=== PATIENT | female | born 1955 | race Hispanic/Latino ===

== ENCOUNTER → 2016-04-27 | Outpatient (CLI) | payer OTHER ==
[~2016-04-27] MED LIST: CETI10TA PO; CLAR10CA3 PO; CYCL10TA PO; IMIT50TA PO; LORA1TAB12 PO; MULT1TAB9 PO; OMEP20CA3 PO; PROG1CRE TD; VAGI10TA VA
== END ==
LOC: M PAIN 09:20
PROVIDERS: ATTEND Nurse Practitioner Family
DX: Z09 Encounter for follow-up examination after completed treatment for conditions other than malignant neoplasm (principal); G89.29 Other chronic pain; M96.1 Postlaminectomy syndrome, not elsewhere classified; M79.1 Myalgia; M47.812 Spondylosis without myelopathy or radiculopathy, cervical region; Z88.8 Allergy status to other drugs, medicaments and biological substances; Z91.013 Allergy to seafood; Z79.899 Other long term (current) drug therapy

== ENCOUNTER 2016-06-26 07:18 | Emergency (ER) | payer OTHER ==
[2016-06-26] MEDS ORDERED: IBUP-1114 PO (07:46)
[2016-06-26] MEDS ORDERED: ZYRT10CA PO (07:46)
[2016-06-26] MEDS ORDERED: NIFE20CA PO (07:46)
[2016-06-26] MEDS ORDERED: MECLIZINE 25 MG TABLET PO ONE (08:45)
[2016-06-26] MEDS ORDERED: ONDANSETRON 4MG/2ML VIAL (J2405) IV ONE (08:45)
[2016-06-26 09:34] LABS: BASO % 0.5 % (0.0-1.0); EOS # 0.1 K/mm3 (0.0-0.50); EOS % 1.3 % (0.0-3.0); LARGE UNSTAINED CELL # 0.2 K/mm3 (0.0-0.4); LARGE UNSTAINED CELL % 1.9 % (0.0-4.0); LYMPH # 1.3 K/mm3 (1.5-4.5); LYMPH % 16.4 % (24.0-44.0); MEAN CORPUSCULAR HEMOGLOBIN 28.5 pg (27.0-33.0); MEAN CORPUSCULAR VOLUME 86.3 fl (80.0-96.0); MONO # 0.4 K/mm3 (0.0-0.8); MONO % 4.6 % (0.0-5.0); NEUTROPHILS % 75.3 % (36.0-66.0); PLATELET COUNT, AUTOMATED 181 k/mm3 (150-450); RED CELL DISTRIBUTION WIDTH 12.2 % (11.5-14.5); WHITE BLOOD COUNT 7.9 K/mm3 (4.0-10.0)
--- NOTE | 2016-06-26 10:00 | REP ---
CT BRAIN WITHOUT CONTRAST: 06/26/2016. Clinical history: [place] Palsy, otalgia. TMJ disorder. Findings: There were no prior pertinent studies. Axial soft-tissue and bone window settings reviewed for each slice level. There are no prior studies. Ventricles show symmetric size and contour without displacement from the midline. Third and fourth ventricles unremarkable. There are some calcifications in the basal ganglia, left slightly larger than right but normal findings. There is no vascular territory infarct, intracranial hemorrhage, mass or mass effect. The manning-white junction differentiation was well maintained. The cortical stripe is preserved. No significant atrophy. There are a few calcifications in the falx. There are some scattered dural calcifications in the vertex on both sides as well. These represent benign findings. No extra-axial fluid collection or mass. Brainstem, cerebellum and basal cisterns intact. Mastoids and visualized sinuses clear. The skull base and calvarium show no fracture or focal lesion. Impression: 1. There is no intracranial hemorrhage, acute infarct, mass or edema. Ventricular system normal and no atrophy. 2. Some calcifications noted in the basal ganglia bilaterally, left slightly greater than right but felt to be a common normal finding in this age group. No acute finding in this CT brain. 3. Maintenance Service Technician image shows a C4-C7 anterior fusion plate and screw fixation device in the cervical spine. Signed by Zacarias Molina MD 06/26/2016 05:05 P
[2016-06-26 10:07] LABS: ANION GAP 6 MEQ/L (8-16); BLOOD UREA NITROGEN 23 MG/DL (7-18); CARBON DIOXIDE LEVEL 30 MEQ/L (21-32); CHLORIDE LEVEL 107 MEQ/L (98-107); GLOMERULAR FILTRATION RATE > 60.0 (>51); GLUCOSE, FASTING 99 MG/DL (70-105); POTASSIUM SERUM 4.4 MEQ/L (3.5-5.1); SODIUM LEVEL 143 MEQ/L (136-145)
[2016-06-26] MEDS ORDERED: MECL-68 PO (11:35)
[2016-06-26 12:00] VITALS: BP 149/75
== END 2016-06-26 12:01 | disposition home or self-care (01) ==
LOC: M ED 08:11
DX: H83.09 Labyrinthitis, unspecified ear (principal); G89.29 Other chronic pain; M54.9 Dorsalgia, unspecified; G51.0 Bell's palsy; G43.909 Migraine, unspecified, not intractable, without status migrainosus; F41.9 Anxiety disorder, unspecified; Z79.899 Other long term (current) drug therapy; Z88.8 Allergy status to other drugs, medicaments and biological substances; Z91.041 Radiographic dye allergy status; Z91.013 Allergy to seafood; Z91.048 Other nonmedicinal substance allergy status
CPT/HCPCS: 70450; 80048; 85025; 96374; 99283; J2405

== ENCOUNTER → 2016-07-13 | Outpatient (CLI) | payer OTHER ==
[~2016-07-13] MED LIST changes: +IBUP-1114 PO; +MECL-68 PO; +NIFE20CA PO; +ZYRT10CA PO
--- NOTE | 2016-07-28 01:16 | ECWPNPC ---
PATIENT NAME: REJI CARBALLO : 1955 GENDER: FEMALE VISIT DATE: 07/13/2016 DISCHARGE DATE: 07/13/16 1451 VISIT LOCKED DATE TIME: PHYSICIAN: EZEQUIEL ASHBY RESOURCE: EZEQUIEL ASHBY REASON FOR APPOINTMENT 1. NECK HISTORY OF PRESENT ILLNESS HISTORY OF PRESENT ILLNESS: PAIN THE PATIENT DESCRIBES THE PAIN... FALL RISK SCREENING: SCREENING :NO FALLS IN THE PAST YEAR TODAY'S VISIT: NOTES: RATES PAIN 5/10. DESCRIBES PAIN ACHING, TENDER AND WITH A SENSE OF PRESSURE OVER RIGHT NECK AND SHOULDER.HAS NOTED AN INCREASE IN DISCOMFORT OF LAST FEW MONTHS. HAS BEEN DOING HER REMEDIES, INCLUDING MASSAGE, MEDS AND HEAT AND CREAMS. . CURRENT MEDICATIONS TAKING IMITREX 25 MG TABLET DIRECTED ORALLY TAKING CLARITIN 10 MG TABLET 1 TABLET ORALLY EVERY MORNING PRN TAKING ZYRTEC 10 MG 1 1 CAP(S) ORAL QHS PRN TAKING LORAZEPAM 1 MG TABLET 1 TABLET AT BEDTIME NEEDED ORALLY ONCE A DAY TAKING PATANOL 1 DROPS OPHTHALMIC DAILY PRN TAKING LOTEMAX 0.5 % SUSPENSION 1 DROP INTO AFFECTED EYE OPHTHALMIC BID TAKING FLEXERIL 10 MG TABLET 1 TAB ORALLY DAILY PRN SPASM TAKING LISINOPRIL 20 MG TABLET ORALLY NOT-TAKING VALACYCLOVIR HCL 1 GM TABLET 1 TABLET ORALLY TID NOT-TAKING VAGIFEM 10 MCG TABLET 1 TABLET VAGINAL TWO TIMES A WEEK DISCONTINUED PREDNISONE TAPER 10 MG TAB TAKE 6 TABS QDX 3 DAYS, THEN TAKE 4 TAB QD X 3 DAYS, THEN TAKE 2 TABS QD X 3 DAYS, THEN TAKE 1 TAB QD X 4 DAYS, THEN STOP ORALLY DAILY MEDICATION LIST REVIEWED AND RECONCILED WITH THE PATIENT ALLERGIES SKELAXIN: ITCHING AND TIGHTNESS IN CHEST: ALLERGY SHELLFISH: ITCHING AND HIVES: ALLERGY SOCIAL HISTORY GENERAL: PAIN CLINIC PFS, CLERGY, PUBLIC HEALTH REFERRALS CLERGY REFERRAL NEEDED?NO WAS THE PROVIDER NOTIFIED OF ANY PERTINENT INFO?NO PFS REFERRAL NEEDED?NO PUBLIC HEALTH REFERRAL NEEDED?NO PATIENT: ____. REVIEW OF SYSTEMS CONSTITUTIONAL: ANY CHANGE IN YOUR MEDICAL CONDITION? YES, HYPERTENTION 06/26/16 ENDED UP IN ER THEN TO PCP ON LISINOPRIL . CHILLS NO . FEVER NO . INFECTION: DO YOU HAVE NEW INFECTIONS? NO . DO YOU HAVE HISTORY OF MRSA? NO . MUSCULOSKELETAL: ANY NEW PATTERNS OF PAIN OR NUMBNESS? NO . GASTROENTEROLOGY: ANY NEW CHANGE IN BOWEL CONTROL? NO . GENITOURINARY: ANY NEW CHANGE IN BLADDER CONTROL? NO . IS THERE A CHANCE YOU COULD BE ? NO . HEMATOLOGY/LYMPH: DO YOU TAKE ANY BLOOD THINNERS? (FOR EXAMPLE- COUMADIN, PLAVIX, AGGRENOX, PLATEL, PRADAXA, OR XARELTO) NO . WHEN WAS YOUR LAST DOSE? DATE: TIME: . NEUROLOGY: HAVE YOU FALLEN IN THE PAST 6 MONTHS? NO . ANY NEW EXTREMITY NUMBNESS OR WEAKNESS? NO . CARDIOLOGY: DO YOU HAVE A PACEMAKER OR DEFIBRILLATOR? NO . CHEST PAIN ANTERIOR CHEST WALL. NO RADIATIION . RESPIRATORY: HAVE YOU BEEN SICK IN THE PAST WEEK? NO . FEVER NO . FLU LIKE SYMPTOMS? NO . COUGH NO . INTEGUMENTARY: DO YOU HAVE ANY RASHES OR OPEN SORES? NO . ALLERGIC/IMMUNO: ARE YOU ALLERGIC TO SHELLFISH OR IV DYE? YES, SHELLFISH . ANY NEW ALLERGIES? NO . PSYCHIATRIC: DO YOU HAVE THOUGHTS OF HURTING YOURSELF OR SOMEONE ELSE? NO . ARE YOU ABUSED, NEGLECTED, OR IN AN UNSAFE ENVIRONMENT? NO . ENDOCRINOLOGY: ARE YOU DIABETIC? NO . OTHER: DO YOU NEED ANY PRESCRIPTIONS? YES . IF YES, PLEASE LIST: FLEXERIL . ANY NEW PROBLEMS WITH YOUR MEDICATIONS? NO . WHEN DID YOU LAST EAT? ____ . WHEN DID YOU LAST DRINK? ____ . WHAT DID YOU LAST DRINK? ____ . NAME OF PERSON DRIVING YOU HOME? ____ . DO YOU HAVE ANY OTHER QUESTIONS OR CONCERNS NO . HEENT: GENERAL NEW ONSET SEVERE DIZZINESS - TO ER WITH THIS. DX WITH LABRINTHITIS. WAS ALSO STARTED ON LISINOPRIL . REVIEWED BY: PROVIDER: EZEQUIEL NOVAK . VITAL SIGNS WT 133 LBS, HT 65 IN, BMI 22.13 INDEX, BP 119/75 MM HG, HR 93 /MIN, RR 16 /MIN, TEMP 98.5 F, OXYGEN SAT % 100%, NA INITIALS SC 13:55, REVIEWED BY: EMILIE. EXAMINATION GENERAL EXAMINATION: LUNGS:CLEAR TO AUSCULTATION BILATERALLY. HEART:HEART RATE REGULAR. MUSCULOSKELETAL:MUSCLE STRENGTH TESTING 5/5 BILATERAL UPPER EXTREMITIES. , TRIGGER POINTS:, ELICITED WITH PALPATION OVER CERVICAL SPINOUS PROCESSES AND ACROSS THE TRAPEZIUS MUSCLES BILATERALLY. TIGHT FIBROUS BANDS PRESENT . MILD RESTRICTION OF ROM IS NOTED. . 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 CONTINUE MEDS AND CREAMS AAS NEEDED. ,TRIGGER POINT INJECTION: YOUR EXPERIENCE MATERIAL WAS PRINTED. PROCEDURE CODES FA211 ESTABILISHED PATIENT [facility] CHARGE DISPOSITION & COMMUNICATION FOLLOW UP AFTER INJECTION (REASON: CHECK AUTH FOR TPI/NECK) ELECTRONICALLY SIGNED BY RON BRYANT ON 07/25/2016 AT 06:38 PM EDT DISCLAIMER : THIS IS A VISIT SUMMARY EXTRACTED FROM THE [employer] CHART. IT IS NOT A COPY OF THE [employer] PROGRESS NOTE. ADAM
== END ==
LOC: M PAIN 14:00
PROVIDERS: ATTEND Nurse Practitioner Family
DX: Z09 Encounter for follow-up examination after completed treatment for conditions other than malignant neoplasm (principal); M79.1 Myalgia; M96.1 Postlaminectomy syndrome, not elsewhere classified; I10 Essential (primary) hypertension; M47.812 Spondylosis without myelopathy or radiculopathy, cervical region; Z79.899 Other long term (current) drug therapy; Z88.8 Allergy status to other drugs, medicaments and biological substances; Z91.013 Allergy to seafood

== ENCOUNTER → 2016-09-18 | Outpatient (CLI) | payer OTHER ==
[~2016-09-18] MED LIST changes: +BUPIVACAINE HCL 0.25% 10 ML VIAL As Ordered ONE; +BUPIVACAINE HCL 0.25% 30 ML VIAL As Ordered ONE; +TRIAMCINOLONE ACETONIDE SUSP 40 MG/ML VIAL (J3301) As Ordered ONE
--- NOTE | 2016-09-24 00:09 | ECWPNPC ---
PATIENT NAME: REJI CARBALLO : 1955 GENDER: FEMALE VISIT DATE: 09/18/2016 DISCHARGE DATE: 09/18/16 1629 VISIT LOCKED DATE TIME: PHYSICIAN: JUDITH PERRY RESOURCE: JUDITH PERRY REASON FOR APPOINTMENT 1. NECK AND SHOULDERS HISTORY OF PRESENT ILLNESS HISTORY OF PRESENT ILLNESS: PAIN THE PATIENT DESCRIBES THE PAIN... FALL RISK SCREENING: SCREENING :NO FALLS IN THE PAST YEAR CURRENT MEDICATIONS TAKING CLARITIN 10 MG TABLET 1 TABLET ORALLY EVERY MORNING PRN, NOTES: 09/18/16 0900 TAKING ZYRTEC 10 MG 1 1 CAP(S) ORAL QHS PRN, NOTES: 09/17/16 2200 TAKING LORAZEPAM 1 MG TABLET 1 TABLET AT BEDTIME NEEDED ORALLY ONCE A DAY, NOTES: NONE RECENTLY TAKING PATANOL 1 DROPS OPHTHALMIC DAILY PRN, NOTES: LAST WEEK TAKING FLEXERIL 10 MG TABLET 1 TAB ORALLY DAILY PRN SPASM, NOTES: 09/17/16 2200 TAKING LISINOPRIL 20 MG TABLET ORALLY ONCE A DAY, NOTES: 09/18/26 0900 NOT-TAKING IMITREX 25 MG TABLET DIRECTED ORALLY NOT-TAKING LOTEMAX 0.5 % SUSPENSION 1 DROP INTO AFFECTED EYE OPHTHALMIC BID NOT-TAKING CYCLOBENZAPRINE HCL 10 MG TABLET 1 TABLET ORALLY DAILY NOT-TAKING VALACYCLOVIR HCL 1 GM TABLET 1 TABLET ORALLY TID NOT-TAKING VAGIFEM 10 MCG TABLET 1 TABLET VAGINAL TWO TIMES A WEEK MEDICATION LIST REVIEWED AND RECONCILED WITH THE PATIENT PAST MEDICAL HISTORY HYPERTENSION ALLERGIES SKELAXIN: ITCHING AND TIGHTNESS IN CHEST: ALLERGY SHELLFISH: ITCHING AND HIVES: ALLERGY SURGICAL HISTORY BILATERAL BUNIONECTOMY CERVICAL FUSION D/C SOCIAL HISTORY GENERAL: TOBACCO USE ARE YOU A:NONSMOKER PAIN CLINIC PFS, CLERGY, PUBLIC HEALTH REFERRALS CLERGY REFERRAL NEEDED?NO WAS THE PROVIDER NOTIFIED OF ANY PERTINENT INFO?NO PFS REFERRAL NEEDED?NO PUBLIC HEALTH REFERRAL NEEDED?NO PATIENT: ____. HOSPITALIZATION/MAJOR DIAGNOSTIC PROCEDURE SURGERIES REVIEW OF SYSTEMS CONSTITUTIONAL: ANY CHANGE IN YOUR MEDICAL CONDITION? NO . CHILLS NO . FEVER NO . INFECTION: DO YOU HAVE NEW INFECTIONS? NO . DO YOU HAVE HISTORY OF MRSA? NO . MUSCULOSKELETAL: ANY NEW PATTERNS OF PAIN OR NUMBNESS? NO . GASTROENTEROLOGY: ANY NEW CHANGE IN BOWEL CONTROL? NO . GENITOURINARY: ANY NEW CHANGE IN BLADDER CONTROL? NO . IS THERE A CHANCE YOU COULD BE ? NO . HEMATOLOGY/LYMPH: DO YOU TAKE ANY BLOOD THINNERS? (FOR EXAMPLE- COUMADIN, PLAVIX, AGGRENOX, PLATEL, PRADAXA, OR XARELTO) NO . WHEN WAS YOUR LAST DOSE? DATE: TIME: . NEUROLOGY: HAVE YOU FALLEN IN THE PAST 6 MONTHS? NO . ANY NEW EXTREMITY NUMBNESS OR WEAKNESS? NO . CARDIOLOGY: DO YOU HAVE A PACEMAKER OR DEFIBRILLATOR? NO . RESPIRATORY: HAVE YOU BEEN SICK IN THE PAST WEEK? NO . FEVER NO . FLU LIKE SYMPTOMS? NO . COUGH NO . INTEGUMENTARY: DO YOU HAVE ANY RASHES OR OPEN SORES? NO . ALLERGIC/IMMUNO: ARE YOU ALLERGIC TO SHELLFISH OR IV DYE? YES . ANY NEW ALLERGIES? NO . PSYCHIATRIC: DO YOU HAVE THOUGHTS OF HURTING YOURSELF OR SOMEONE ELSE? NO . ARE YOU ABUSED, NEGLECTED, OR IN AN UNSAFE ENVIRONMENT? NO . ENDOCRINOLOGY: ARE YOU DIABETIC? NO . OTHER: DO YOU NEED ANY PRESCRIPTIONS? NO . IF YES, PLEASE LIST: ____ . ANY NEW PROBLEMS WITH YOUR MEDICATIONS? NO . WHEN DID YOU LAST EAT? 0800 . WHEN DID YOU LAST DRINK? 0900 . WHAT DID YOU LAST DRINK? APPLE JUICE . NAME OF PERSON DRIVING YOU HOME? MARK . DO YOU HAVE ANY OTHER QUESTIONS OR CONCERNS NO . REVIEWED BY: PROVIDER: . VITAL SIGNS WT 134.0 LBS, HT 65 IN, BMI 22.30 INDEX, BP 123/80 MM HG, HR 80 /MIN, RR 16 /MIN, TEMP 97.8 F, OXYGEN SAT % 100%, NA INITIALS TL 1454, REVIEWED BY: LS. ASSESSMENTS MYALGIA - M79.1 (PRIMARY) PROCEDURES PN TRIGGER POINT INJECTION WITH STEROIDS PRE PROCEDURE DIAGNOSIS 1. MYALGIA 2. PAIN AT RIGHT NECK AREA AND BILATERAL SHOULDER AREA POST PROCEDURE DIAGNOSIS 1. MYALGIA 2. PAIN AT RIGHT NECK AREA AND BILATERAL SHOULDER AREA PROCEDURE TRIGGER POINT INJECTION AT RIGHT NECK AREA AND BILATERAL SHOULDER AREA SURGEON DR. JUDITH PERRY SHEETER HELPER NONE ANESTHESIA LOCAL PRE PROCEDURE NOTE THE PATIENT HAS A HISTORY OF CHRONIC PAIN AT THE RIGHT NECK AREA AND RIGHT AND LEFT SHOULDER AREA. I EVALUATE THE PATIENT AND REVIEWED THE CHART. THERE IS EVIDENCE OF BANDS OF TISSUE WITH RESTRICTION OF MOVEMENT AND PRESENCE OF TRIGGER POINT AT THE AFFECTED AREA. I WENT OVER THE RISKS, ALTERNATIVES, AND BENEFITS ASSOCIATED WITH THIS PROCEDURE. THE PATIENT WOULD LIKE TO PROCEED AND GIVE CONSENT TO PERFORMED THE PROCEDURE. THE PATIENT DENIES UNEXPLAINABLE WEIGHT LOSS, FEVER, CHILLS, OR NEW CHANGES IN URINARY OR BOWEL CONTROL DESCRIPTION OF PROCEDURE THE PATIENT WAS BROUGHT TO THE PROCEDURE ROOM AND PLACED IN THE SITTING POSITION. THE AREA WAS CLEANED WITH ALCOHOL. THE PROCEDURE WAS DONE USING ASEPTIC STERILE TECHNIQUE. I CHECKED LATERALITY AND THE LEVEL WHERE THE PROCEDURE WAS GOING TO BE PERFORMED WITH THE PATIENT AND THE SUPPORTING STAFF AT THE MOMENT OF THE TIME OUT IN THE PROCEDURE ROOM. USING A 25-GAUGE NEEDLE, TRIGGER POINTS WERE INJECTED AT THE RIGHT NECK AREA AND RIGHT AND LEFT SHOULDER AREA WITH A TOTAL OF 40 ML OF BUPIVACAINE 0.25% AND KENALOG 40 MG. THERE WAS NO EVIDENCE OF BLOOD, PARESTHESIA OR CEREBROSPINAL FLUID DURING THE PROCEDURE. THE PATIENT WAS SENT TO THE RECOVERY ROOM. THE PATIENT WAS MOVING THE EXTREMITIES AND DOING WELL. THERE WAS NO COMPLICATION DURING THE PROCEDURE POST PROCEDURE NOTE THE PATIENT WILL BE SEEN IN A FOLLOW UP IN THE NEXT FEW WEEKS. INSTRUCTIONS WERE GIVEN, QUESTIONS WERE ANSWERED, AND THE PATIENT EXPRESSED UNDERSTANDING AND AGREES WITH THE PLAN. I, ALEJANDRO CARCAMO, DOCUMENTED THE ABOVE INFORMATION ACTING A SCRIBE FOR DR. PERRY. I HAVE REVIEWED THE ABOVE DOCUMENT, WRITTEN BY ALEJANDRO CARCAMO SCRIBE AND I VERIFY THAT IT IS ACCURATE PROCEDURE CODES 27535 INJECT TRIGGER POINTS 3/> DISPOSITION & COMMUNICATION FOLLOW UP 3 WEEKS ELECTRONICALLY SIGNED BY JUDITH PERRY MD ON 09/23/2016 AT 07:57 PM EDT DISCLAIMER : THIS IS A VISIT SUMMARY EXTRACTED FROM THE [employer] CHART. IT IS NOT A COPY OF THE [employer] PROGRESS NOTE. ADAM
== END ==
LOC: M PAIN 15:00
PROVIDERS: ATTEND Anesthesiology
DX: G89.29 Other chronic pain (principal); M79.1 Myalgia; I10 Essential (primary) hypertension; Z98.1 Arthrodesis status; Z91.013 Allergy to seafood; Z88.8 Allergy status to other drugs, medicaments and biological substances; Z79.899 Other long term (current) drug therapy
CPT/HCPCS: 20553; J3301

== ENCOUNTER → 2016-10-12 | Outpatient (CLI) | payer OTHER ==
[~2016-10-12] MED LIST changes: -BUPIVACAINE HCL 0.25% 10 ML VIAL As Ordered ONE; -BUPIVACAINE HCL 0.25% 30 ML VIAL As Ordered ONE; -TRIAMCINOLONE ACETONIDE SUSP 40 MG/ML VIAL (J3301) As Ordered ONE
--- NOTE | 2016-10-31 03:32 | ECWPNPC ---
PATIENT NAME: REJI CARBALLO : 1955 GENDER: FEMALE VISIT DATE: 10/12/2016 DISCHARGE DATE: 10/12/16 1419 VISIT LOCKED DATE TIME: PHYSICIAN: EZEQUIEL ASHBY RESOURCE: EZEQUIEL ASHBY REASON FOR APPOINTMENT 1. POST PROCEDURE,NECK/SHOULDER HISTORY OF PRESENT ILLNESS HISTORY OF PRESENT ILLNESS: PAIN THE PATIENT DESCRIBES THE PAIN... FALL RISK SCREENING: SCREENING :NO FALLS IN THE PAST YEAR TODAY'S VISIT: NOTES: RATES PAIN TODAY 4/10. IS S/P TPI TO RIGHT NECK AND SHOULDER AREA WITH STEROIDS ON 09/18/16 PRIOR TO INJECTION PAIN WAS 5/10 - THEN WENT TO 0-1/10 FOR A WEEK AND THEN SLOWLY INCREASES TO 3-4/10. HAS NOTED SIGNIG IMPROVEMNT IN MOVEMENT IN NECK AND GENERAL DECREASE .. CURRENT MEDICATIONS TAKING CLARITIN 10 MG TABLET 1 TABLET ORALLY EVERY MORNING PRN TAKING ZYRTEC 10 MG 1 1 CAP(S) ORAL QHS PRN TAKING LORAZEPAM 1 MG TABLET 1 TABLET AT BEDTIME NEEDED ORALLY ONCE A DAY TAKING FLEXERIL 10 MG TABLET 1 TAB ORALLY DAILY PRN SPASM TAKING LISINOPRIL 20 MG TABLET ORALLY ONCE A DAY TAKING XIIDRA 5 % SOLUTION 1 DROP INTO AFFECTED EYE OPHTHALMIC TWICE A DAY NOT-TAKING PATANOL 1 DROPS OPHTHALMIC DAILY PRN NOT-TAKING IMITREX 25 MG TABLET DIRECTED ORALLY NOT-TAKING LOTEMAX 0.5 % SUSPENSION 1 DROP INTO AFFECTED EYE OPHTHALMIC BID NOT-TAKING CYCLOBENZAPRINE HCL 10 MG TABLET 1 TABLET ORALLY DAILY NOT-TAKING VALACYCLOVIR HCL 1 GM TABLET 1 TABLET ORALLY TID NOT-TAKING VAGIFEM 10 MCG TABLET 1 TABLET VAGINAL TWO TIMES A WEEK MEDICATION LIST REVIEWED AND RECONCILED WITH THE PATIENT PAST MEDICAL HISTORY HYPERTENSION ALLERGIES SKELAXIN: ITCHING AND TIGHTNESS IN CHEST: ALLERGY SHELLFISH: ITCHING AND HIVES: ALLERGY SOCIAL HISTORY GENERAL: TOBACCO USE ARE YOU A:NONSMOKER ALEVISM [id number] PFS, CLERGY, PUBLIC HEALTH REFERRALS PFS REFERRAL NEEDED?NO CLERGY REFERRAL NEEDED?NO PUBLIC HEALTH REFERRAL NEEDED?NO HAS THE PATIENT BEEN EDUCATED REGARDING HIS/HER PLAN OF CARE?YES HAS THE PATIENT BEEN EDUCATED REGARDING PAIN, THE RISK FOR PAIN, THE IMPORTANCE OF EFFECTIVE PAIN MANAGEMENT, AND THE PAIN ASSESSMENT PROCESS?YES PATIENT: ____. REVIEW OF SYSTEMS REVIEWED BY: PROVIDER: EZEQUIEL NOVAK . CONSTITUTIONAL: ANY CHANGE IN YOUR MEDICAL CONDITION? NO . CHILLS NO . FEVER NO . INFECTION: DO YOU HAVE NEW INFECTIONS? NO . DO YOU HAVE HISTORY OF MRSA? NO . MUSCULOSKELETAL: ANY NEW PATTERNS OF PAIN OR NUMBNESS? NO . GASTROENTEROLOGY: ANY NEW CHANGE IN BOWEL CONTROL? NO . GENITOURINARY: ANY NEW CHANGE IN BLADDER CONTROL? NO . IS THERE A CHANCE YOU COULD BE ? NO . HEMATOLOGY/LYMPH: DO YOU TAKE ANY BLOOD THINNERS? (FOR EXAMPLE- COUMADIN, PLAVIX, AGGRENOX, PLATEL, PRADAXA, OR XARELTO) NO . WHEN WAS YOUR LAST DOSE? DATE: TIME: . NEUROLOGY: HAVE YOU FALLEN IN THE PAST 6 MONTHS? NO . ANY NEW EXTREMITY NUMBNESS OR WEAKNESS? NO . CARDIOLOGY: DO YOU HAVE A PACEMAKER OR DEFIBRILLATOR? NO . RESPIRATORY: HAVE YOU BEEN SICK IN THE PAST WEEK? NO . FEVER NO . FLU LIKE SYMPTOMS? NO . COUGH NO . INTEGUMENTARY: DO YOU HAVE ANY RASHES OR OPEN SORES? NO . ALLERGIC/IMMUNO: ARE YOU ALLERGIC TO SHELLFISH OR IV DYE? YES, SHELLFISH . ANY NEW ALLERGIES? NO . PSYCHIATRIC: DO YOU HAVE THOUGHTS OF HURTING YOURSELF OR SOMEONE ELSE? NO . ARE YOU ABUSED, NEGLECTED, OR IN AN UNSAFE ENVIRONMENT? NO . ENDOCRINOLOGY: ARE YOU DIABETIC? NO . OTHER: DO YOU NEED ANY PRESCRIPTIONS? NO . IF YES, PLEASE LIST: ____ . ANY NEW PROBLEMS WITH YOUR MEDICATIONS? NO . WHEN DID YOU LAST EAT? ____ . WHEN DID YOU LAST DRINK? ____ . WHAT DID YOU LAST DRINK? ____ . NAME OF PERSON DRIVING YOU HOME? ____ . DO YOU HAVE ANY OTHER QUESTIONS OR CONCERNS NO . VITAL SIGNS WT 133 LBS, HT 65 IN, BMI 22.13 INDEX, BP 136/84 MM HG, HR 75 /MIN, RR 16 /MIN, TEMP 98.0 F, OXYGEN SAT % 97%, NA INITIALS AW 1357, REVIEWED BY: CS. EXAMINATION GENERAL EXAMINATION: LUNGS:CLEAR TO AUSCULTATION BILATERALLY. HEART:HEART RATE REGULAR. MUSCULOSKELETAL:MUSCLE STRENGTH TESTING 5/5 BILATERAL UPPER EXTREMITIES. , TRIGGER POINTS:, ELICITED WITH PALPATION OVER CERVICAL SPINOUS PROCESSES AND ACROSS THE TRAPEZIUS MUSCLES BILATERALLY. TIGHT FIBROUS BANDS PRESENT . MILD RESTRICTION OF ROM IS NOTED. . 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 CONTINUE CURRENT MEDS NEEDED. PROCEDURE CODES FA211 ESTABILISHED PATIENT [facility] CHARGE DISPOSITION & COMMUNICATION FOLLOW UP MID (REASON: NECK/SHOULDER PAIN) ELECTRONICALLY SIGNED BY RON BRYANT ON 10/30/2016 AT 05:57 PM EDT DISCLAIMER : THIS IS A VISIT SUMMARY EXTRACTED FROM THE [employer] CHART. IT IS NOT A COPY OF THE [employer] PROGRESS NOTE. ADAM
== END ==
LOC: M PAIN 14:40
PROVIDERS: ATTEND Nurse Practitioner Family
DX: G89.29 Other chronic pain (principal); M79.1 Myalgia; M96.1 Postlaminectomy syndrome, not elsewhere classified; M47.812 Spondylosis without myelopathy or radiculopathy, cervical region; I10 Essential (primary) hypertension; Z79.899 Other long term (current) drug therapy; Z88.8 Allergy status to other drugs, medicaments and biological substances; Z91.013 Allergy to seafood

== ENCOUNTER → 2016-12-13 | Outpatient (CLI) | payer OTHER ==
--- NOTE | 2017-01-01 02:03 | ECWPNPC ---
PATIENT NAME: REJI CARBALLO : 1955 GENDER: FEMALE VISIT DATE: 12/13/2016 DISCHARGE DATE: 12/13/16 1458 VISIT LOCKED DATE TIME: PHYSICIAN: EZEQUIEL ASHBY RESOURCE: EZEQUIEL ASHBY REASON FOR APPOINTMENT 1. NECK HISTORY OF PRESENT ILLNESS HISTORY OF PRESENT ILLNESS: PAIN THE PATIENT DESCRIBES THE PAIN... FALL RISK SCREENING: SCREENING :NO FALLS IN THE PAST YEAR TODAY'S VISIT: NOTES: RATES PAIN TODAY 4-5/10. HAS BEEN NOTING INCREASED PAIN IN NECK AND UPPER SHOULDERS, RIGHT SIDE GREATER THAN LEFT. DESCRIBES PIN ACHING, TENDER AND SORE AND VERY TIGHT. IS HAVING INCREASED DIFFICULTY WITH NECK ROM.. CURRENT MEDICATIONS TAKING CLARITIN 10 MG TABLET 1 TABLET ORALLY EVERY MORNING PRN TAKING ZYRTEC 10 MG 1 1 CAP(S) ORAL QHS PRN TAKING LORAZEPAM 1 MG TABLET 1 TABLET AT BEDTIME NEEDED ORALLY ONCE A DAY TAKING FLEXERIL 10 MG TABLET 1 TAB ORALLY DAILY PRN SPASM TAKING LISINOPRIL 20 MG TABLET ORALLY ONCE A DAY TAKING XIIDRA 5 % SOLUTION 1 DROP INTO AFFECTED EYE OPHTHALMIC TWICE A DAY NOT-TAKING PATANOL 1 DROPS OPHTHALMIC DAILY PRN NOT-TAKING IMITREX 25 MG TABLET DIRECTED ORALLY NOT-TAKING LOTEMAX 0.5 % SUSPENSION 1 DROP INTO AFFECTED EYE OPHTHALMIC BID NOT-TAKING CYCLOBENZAPRINE HCL 10 MG TABLET 1 TABLET ORALLY DAILY NOT-TAKING VALACYCLOVIR HCL 1 GM TABLET 1 TABLET ORALLY TID NOT-TAKING VAGIFEM 10 MCG TABLET 1 TABLET VAGINAL TWO TIMES A WEEK MEDICATION LIST REVIEWED AND RECONCILED WITH THE PATIENT PAST MEDICAL HISTORY HYPERTENSION ALLERGIES SKELAXIN: ITCHING AND TIGHTNESS IN CHEST: ALLERGY SHELLFISH: ITCHING AND HIVES: ALLERGY SURGICAL HISTORY BILATERAL BUNIONECTOMY CERVICAL FUSION D/C HOSPITALIZATION/MAJOR DIAGNOSTIC PROCEDURE SURGERIES REVIEW OF SYSTEMS REVIEWED BY: PROVIDER: EZEQUIEL NOVAK . CONSTITUTIONAL: ANY CHANGE IN YOUR MEDICAL CONDITION? NO . CHILLS NO . FEVER NO . INFECTION: DO YOU HAVE NEW INFECTIONS? NO . DO YOU HAVE HISTORY OF MRSA? NO . MUSCULOSKELETAL: ANY NEW PATTERNS OF PAIN OR NUMBNESS? NO . GASTROENTEROLOGY: ANY NEW CHANGE IN BOWEL CONTROL? NO . GENITOURINARY: ANY NEW CHANGE IN BLADDER CONTROL? NO . IS THERE A CHANCE YOU COULD BE ? NO . HEMATOLOGY/LYMPH: DO YOU TAKE ANY BLOOD THINNERS? (FOR EXAMPLE- COUMADIN, PLAVIX, AGGRENOX, PLATEL, PRADAXA, OR XARELTO) NO . WHEN WAS YOUR LAST DOSE? DATE: TIME: . NEUROLOGY: HAVE YOU FALLEN IN THE PAST 6 MONTHS? NO . ANY NEW EXTREMITY NUMBNESS OR WEAKNESS? NO . CARDIOLOGY: DO YOU HAVE A PACEMAKER OR DEFIBRILLATOR? NO . RESPIRATORY: HAVE YOU BEEN SICK IN THE PAST WEEK? NO . FEVER NO . FLU LIKE SYMPTOMS? NO . COUGH NO . INTEGUMENTARY: DO YOU HAVE ANY RASHES OR OPEN SORES? NO . ALLERGIC/IMMUNO: ARE YOU ALLERGIC TO SHELLFISH OR IV DYE? YES, SHELLFISH . ANY NEW ALLERGIES? NO . PSYCHIATRIC: DO YOU HAVE THOUGHTS OF HURTING YOURSELF OR SOMEONE ELSE? NO . ARE YOU ABUSED, NEGLECTED, OR IN AN UNSAFE ENVIRONMENT? NO . ENDOCRINOLOGY: ARE YOU DIABETIC? NO . OTHER: DO YOU NEED ANY PRESCRIPTIONS? NO . IF YES, PLEASE LIST: ____ . ANY NEW PROBLEMS WITH YOUR MEDICATIONS? NO . WHEN DID YOU LAST EAT? ____ . WHEN DID YOU LAST DRINK? ____ . WHAT DID YOU LAST DRINK? ____ . NAME OF PERSON DRIVING YOU HOME? ____ . DO YOU HAVE ANY OTHER QUESTIONS OR CONCERNS NO . PSYCHOLOGY: HIGH STRESS LEVEL ASSOCIATED WITH:, AT WORK . SPECIFICALLY QUESTIONED AND DENIES SUICIDAL OR HOMICIDAL IDEATION . VITAL SIGNS WT 136 LBS, HT 65 IN, BMI 22.63 INDEX, BP 119/73 MM HG, HR 76 /MIN, RR 18 /MIN, TEMP 98.3 F, OXYGEN SAT % 96, REVIEWED BY: EM. EXAMINATION GENERAL EXAMINATION: LUNGS:CLEAR TO AUSCULTATION BILATERALLY, BREATHING IS SHALLOW. HEART:HEART RATE REGULAR. MUSCULOSKELETAL:MUSCLE STRENGTH TESTING 5/5 BILATERAL UPPER EXTREMITIES. , TRIGGER POINTS:, ELICITED WITH PALPATION OVER CERVICAL SPINOUS PROCESSES AND ACROSS THE TRAPEZIUS MUSCLES BILATERALLY. TIGHT FIBROUS BANDS PRESENT . RESTRICTION OF ROM IS NOTED WITH NECK FLEXION, EXTENSION AND ROTATION, AND WITH R>L SHOULDER SHRUG. 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 ICE/HEAT TO NECK AND SHOULDER. USE CURRENT MEDS AND DO EXERCISES GENTLY. PREVENTIVE MEDICINE GAVE INFO ON TRIGGER POINTS AND PRE PROCEDURE CARE DISCUSSED / PT EXPRESSED UNDERSTANDING OF ALL. PROCEDURE CODES FA211 ESTABILISHED PATIENT [facility] CHARGE DISPOSITION & COMMUNICATION FOLLOW UP AFTER INJECTION (REASON: NECK PAIN) ELECTRONICALLY SIGNED BY RON BRYANT ON 12/31/2016 AT 06:05 PM EDT DISCLAIMER : THIS IS A VISIT SUMMARY EXTRACTED FROM THE [employer] CHART. IT IS NOT A COPY OF THE [employer] PROGRESS NOTE. NIKOD
== END ==
LOC: M PAIN 14:00
PROVIDERS: ATTEND Nurse Practitioner Family
DX: G89.29 Other chronic pain (principal); M79.1 Myalgia; M96.1 Postlaminectomy syndrome, not elsewhere classified; M47.812 Spondylosis without myelopathy or radiculopathy, cervical region; Z91.013 Allergy to seafood; Z88.8 Allergy status to other drugs, medicaments and biological substances

== ENCOUNTER → 2017-01-10 | Outpatient (CLI) | payer OTHER ==
[~2017-01-10] MED LIST changes: +BUPIVACAINE HCL 0.25% 10 ML VIAL As Ordered ONE; +BUPIVACAINE HCL 0.25% 30 ML VIAL As Ordered ONE; +TRIAMCINOLONE ACETONIDE SUSP 40 MG/ML VIAL (J3301) As Ordered ONE
--- NOTE | 2017-01-16 00:38 | ECWPNPC ---
PATIENT NAME: REJI CARBALLO : 1955 GENDER: FEMALE VISIT DATE: 01/10/2017 DISCHARGE DATE: 01/10/17 1159 VISIT LOCKED DATE TIME: PHYSICIAN: JUDITH PERRY RESOURCE: JUDITH PERRY REASON FOR APPOINTMENT 1. TPI, NECK HISTORY OF PRESENT ILLNESS HISTORY OF PRESENT ILLNESS: PAIN THE PATIENT DESCRIBES THE PAIN... FALL RISK SCREENING: SCREENING :NO FALLS IN THE PAST YEAR CURRENT MEDICATIONS TAKING CLARITIN 10 MG TABLET 1 TABLET ORALLY EVERY MORNING PRN, NOTES: NOT LATELY TAKING ZYRTEC 10 MG 1 1 CAP(S) ORAL QHS PRN, NOTES: NOT LATELY TAKING LORAZEPAM 1 MG TABLET 1 TABLET AT BEDTIME NEEDED ORALLY ONCE A DAY, NOTES: A WEEK AGO TAKING FLEXERIL 10 MG TABLET 1 TAB ORALLY DAILY PRN SPASM, NOTES: A COUPLD DAYS AGO TAKING LISINOPRIL 20 MG TABLET ORALLY ONCE A DAY, NOTES: 01-10-17 0600 TAKING XIIDRA 5 % SOLUTION 1 DROP INTO AFFECTED EYE OPHTHALMIC TWICE A DAY, NOTES: 01-10-17 0700 TAKING PRILOSEC 20 MG CAPSULE DELAYED RELEASE 1 CAPSULE ORALLY ONCE A DAY NOT-TAKING PATANOL 1 DROPS OPHTHALMIC DAILY PRN NOT-TAKING IMITREX 25 MG TABLET DIRECTED ORALLY NOT-TAKING LOTEMAX 0.5 % SUSPENSION 1 DROP INTO AFFECTED EYE OPHTHALMIC BID NOT-TAKING CYCLOBENZAPRINE HCL 10 MG TABLET 1 TABLET ORALLY DAILY NOT-TAKING VALACYCLOVIR HCL 1 GM TABLET 1 TABLET ORALLY TID NOT-TAKING VAGIFEM 10 MCG TABLET 1 TABLET VAGINAL TWO TIMES A WEEK MEDICATION LIST REVIEWED AND RECONCILED WITH THE PATIENT PAST MEDICAL HISTORY HYPERTENSION ALLERGIES SKELAXIN: ITCHING AND TIGHTNESS IN CHEST: ALLERGY SHELLFISH: ITCHING AND HIVES: ALLERGY REVIEW OF SYSTEMS REVIEWED BY: PROVIDER: . CONSTITUTIONAL: ANY CHANGE IN YOUR MEDICAL CONDITION? NO . CHILLS NO . FEVER NO . INFECTION: DO YOU HAVE NEW INFECTIONS? NO . DO YOU HAVE HISTORY OF MRSA? NO . MUSCULOSKELETAL: ANY NEW PATTERNS OF PAIN OR NUMBNESS? NO . GASTROENTEROLOGY: ANY NEW CHANGE IN BOWEL CONTROL? NO . GENITOURINARY: ANY NEW CHANGE IN BLADDER CONTROL? NO . IS THERE A CHANCE YOU COULD BE ? NO . HEMATOLOGY/LYMPH: DO YOU TAKE ANY BLOOD THINNERS? (FOR EXAMPLE- COUMADIN, PLAVIX, AGGRENOX, PLATEL, PRADAXA, OR XARELTO) NO . WHEN WAS YOUR LAST DOSE? DATE: TIME: . NEUROLOGY: HAVE YOU FALLEN IN THE PAST 6 MONTHS? NO . ANY NEW EXTREMITY NUMBNESS OR WEAKNESS? NO . CARDIOLOGY: DO YOU HAVE A PACEMAKER OR DEFIBRILLATOR? NO . RESPIRATORY: HAVE YOU BEEN SICK IN THE PAST WEEK? NO . FEVER NO . FLU LIKE SYMPTOMS? NO . COUGH NO . INTEGUMENTARY: DO YOU HAVE ANY RASHES OR OPEN SORES? NO . ALLERGIC/IMMUNO: ARE YOU ALLERGIC TO SHELLFISH OR IV DYE? SHELL FISHYES . ANY NEW ALLERGIES? NO . PSYCHIATRIC: DO YOU HAVE THOUGHTS OF HURTING YOURSELF OR SOMEONE ELSE? NO . ARE YOU ABUSED, NEGLECTED, OR IN AN UNSAFE ENVIRONMENT? NO . ENDOCRINOLOGY: ARE YOU DIABETIC? NO . OTHER: DO YOU NEED ANY PRESCRIPTIONS? NO . IF YES, PLEASE LIST: ____ . ANY NEW PROBLEMS WITH YOUR MEDICATIONS? NO . WHEN DID YOU LAST EAT? ____LAST NIGHT 7 PM . WHEN DID YOU LAST DRINK? _WATER THIS MORNING . WHAT DID YOU LAST DRINK? ____ . NAME OF PERSON DRIVING YOU HOME? ____KATE . DO YOU HAVE ANY OTHER QUESTIONS OR CONCERNS NO . VITAL SIGNS WT 133 LBS, HT 65 IN, BMI 22.13 INDEX. ASSESSMENTS MYALGIA - M79.1 (PRIMARY) PROCEDURES PN TRIGGER POINT INJECTION WITH STEROIDS PRE PROCEDURE DIAGNOSIS 1. MYALGIA 2. PAIN AT RIGHT AND LEFT SHOULDER AREA AND RIGHT THORACIC AREA POST PROCEDURE DIAGNOSIS 1. MYALGIA 2. PAIN AT RIGHT AND LEFT SHOULDER AREA AND RIGHT THORACIC AREA PROCEDURE TRIGGER POINT INJECTION AT RIGHT AND LEFT SHOULDER AREA AND RIGHT THORACIC AREA SURGEON DR. JUDITH PERRY POLE SANDER OPERATOR NONE ANESTHESIA LOCAL PRE PROCEDURE NOTE THE PATIENT HAS A HISTORY OF CHRONIC PAIN AT THE RIGHT AND LEFT SHOULDER AND RIGHT THORACIC AREA. I EVALUATE THE PATIENT AND REVIEWED THE CHART. THERE IS EVIDENCE OF BANDS OF TISSUE WITH RESTRICTION OF MOVEMENT AND PRESENCE OF TRIGGER POINT AT THE AFFECTED AREA. I WENT OVER THE RISKS, ALTERNATIVES, AND BENEFITS ASSOCIATED WITH THIS PROCEDURE. THE PATIENT WOULD LIKE TO PROCEED AND GIVE CONSENT TO PERFORMED THE PROCEDURE. THE PATIENT DENIES UNEXPLAINABLE WEIGHT LOSS, FEVER, CHILLS, OR NEW CHANGES IN URINARY OR BOWEL CONTROL DESCRIPTION OF PROCEDURE THE PATIENT WAS BROUGHT TO THE PROCEDURE ROOM AND PLACED IN THE SITTING POSITION. THE AREA WAS CLEANED WITH ALCOHOL. THE PROCEDURE WAS DONE USING ASEPTIC STERILE TECHNIQUE. I CHECKED LATERALITY AND THE LEVEL WHERE THE PROCEDURE WAS GOING TO BE PERFORMED WITH THE PATIENT AND THE SUPPORTING STAFF AT THE MOMENT OF THE TIME OUT IN THE PROCEDURE ROOM. USING A 25-GAUGE NEEDLE, TRIGGER POINTS WERE INJECTED AT THE RIGHT AND LEFT SHOULDER AND RIGHT THORACIC AREA WITH A TOTAL OF 40 ML OF BUPIVACAINE 0.25% AND KENALOG 40 MG. THERE WAS NO EVIDENCE OF BLOOD, PARESTHESIA OR CEREBROSPINAL FLUID DURING THE PROCEDURE. THE PATIENT WAS SENT TO THE RECOVERY ROOM. THE PATIENT WAS MOVING THE EXTREMITIES AND DOING WELL. THERE WAS NO COMPLICATION DURING THE PROCEDURE POST PROCEDURE NOTE THE PATIENT WILL BE SEEN IN A FOLLOW UP IN THE NEXT FEW WEEKS. INSTRUCTIONS WERE GIVEN, QUESTIONS WERE ANSWERED, AND THE PATIENT EXPRESSED UNDERSTANDING AND AGREES WITH THE PLAN. I, GIRMA QUINTERO, DOCUMENTED THE ABOVE INFORMATION ACTING A SCRIBE FOR DR. PERRY. I HAVE REVIEWED THE ABOVE DOCUMENT, WRITTEN BY GIRMA JAVIER AND I VERIFY THAT IT IS ACCURATE. PROCEDURE CODES 01212 INJECT TRIGGER POINTS 3/> DISPOSITION & COMMUNICATION FOLLOW UP 3 WEEKS ELECTRONICALLY SIGNED BY JUDITH PERRY MD ON 01/14/2017 AT 12:44 PM EDT DISCLAIMER : THIS IS A VISIT SUMMARY EXTRACTED FROM THE [employer] CHART. IT IS NOT A COPY OF THE [employer] PROGRESS NOTE. ADAM
== END ==
LOC: M PAIN 10:45
PROVIDERS: ATTEND Anesthesiology
DX: G89.29 Other chronic pain (principal); M25.511 Pain in right shoulder; M25.512 Pain in left shoulder; M54.6 Pain in thoracic spine; M79.1 Myalgia; I10 Essential (primary) hypertension; Z91.013 Allergy to seafood; Z88.8 Allergy status to other drugs, medicaments and biological substances; Z79.899 Other long term (current) drug therapy
CPT/HCPCS: 20553; J3301

== ENCOUNTER → 2017-02-08 | Outpatient (CLI) | payer OTHER ==
[~2017-02-08] MED LIST changes: -BUPIVACAINE HCL 0.25% 10 ML VIAL As Ordered ONE; -BUPIVACAINE HCL 0.25% 30 ML VIAL As Ordered ONE; -TRIAMCINOLONE ACETONIDE SUSP 40 MG/ML VIAL (J3301) As Ordered ONE
--- NOTE | 2017-03-11 00:53 | ECWPNPC ---
PATIENT NAME: REJI CARBALLO : 1955 GENDER: FEMALE VISIT DATE: 02/08/2017 DISCHARGE DATE: 02/08/17 1510 VISIT LOCKED DATE TIME: PHYSICIAN: EZEQUIEL ASHBY RESOURCE: EZEQUIEL ASHBY REASON FOR APPOINTMENT 1. POST TPI HISTORY OF PRESENT ILLNESS HISTORY OF PRESENT ILLNESS: PAIN THE PATIENT DESCRIBES THE PAIN... FALL RISK SCREENING: SCREENING :NO FALLS IN THE PAST YEAR TODAY'S VISIT: NOTES: S/P TRIGGER POINTS TO NECK UPER SHOULDERS WITH STEROIDS COMPLETED ON 01/10/17. PAIN LEVEL PRIOR WAS 5/10 AND POST PROCEDURE PAIN LEVEL WAS 2/10 WITH SOME INTERMITTANT ELEVATION TO 3/10. BETTER ABLE TO MOVE HEAD AND SHRUG SHOULDERS. . CURRENT MEDICATIONS TAKING CLARITIN 10 MG TABLET 1 TABLET ORALLY EVERY MORNING PRN TAKING ZYRTEC 10 MG 1 1 CAP(S) ORAL QHS PRN TAKING LORAZEPAM 1 MG TABLET 1 TABLET AT BEDTIME NEEDED ORALLY ONCE A DAY TAKING FLEXERIL 10 MG TABLET 1 TAB ORALLY DAILY PRN SPASM TAKING LISINOPRIL 20 MG TABLET ORALLY ONCE A DAY TAKING XIIDRA 5 % SOLUTION 1 DROP INTO AFFECTED EYE OPHTHALMIC TWICE A DAY TAKING PRILOSEC 20 MG CAPSULE DELAYED RELEASE 1 CAPSULE ORALLY ONCE A DAY UNKNOWN PATANOL 1 DROPS OPHTHALMIC DAILY PRN UNKNOWN IMITREX 25 MG TABLET DIRECTED ORALLY UNKNOWN LOTEMAX 0.5 % SUSPENSION 1 DROP INTO AFFECTED EYE OPHTHALMIC BID UNKNOWN CYCLOBENZAPRINE HCL 10 MG TABLET 1 TABLET ORALLY DAILY UNKNOWN VALACYCLOVIR HCL 1 GM TABLET 1 TABLET ORALLY TID UNKNOWN VAGIFEM 10 MCG TABLET 1 TABLET VAGINAL TWO TIMES A WEEK MEDICATION LIST REVIEWED AND RECONCILED WITH THE PATIENT PAST MEDICAL HISTORY HYPERTENSION ALLERGIES SKELAXIN: ITCHING AND TIGHTNESS IN CHEST: ALLERGY SHELLFISH: ITCHING AND HIVES: ALLERGY REVIEW OF SYSTEMS REVIEWED BY: PROVIDER: EZEQUIEL ASHBY [employer] ARCHITECT . CONSTITUTIONAL: ANY CHANGE IN YOUR MEDICAL CONDITION? NO . CHILLS NO . FEVER NO . INFECTION: DO YOU HAVE NEW INFECTIONS? NO . DO YOU HAVE HISTORY OF MRSA? NO . MUSCULOSKELETAL: ANY NEW PATTERNS OF PAIN OR NUMBNESS? NO . GASTROENTEROLOGY: ANY NEW CHANGE IN BOWEL CONTROL? NO . GENITOURINARY: ANY NEW CHANGE IN BLADDER CONTROL? NO . IS THERE A CHANCE YOU COULD BE ? NO . HEMATOLOGY/LYMPH: DO YOU TAKE ANY BLOOD THINNERS? (FOR EXAMPLE- COUMADIN, PLAVIX, AGGRENOX, PLATEL, PRADAXA, OR XARELTO) NO . WHEN WAS YOUR LAST DOSE? DATE: TIME: . NEUROLOGY: HAVE YOU FALLEN IN THE PAST 6 MONTHS? NO . ANY NEW EXTREMITY NUMBNESS OR WEAKNESS? NO . CARDIOLOGY: DO YOU HAVE A PACEMAKER OR DEFIBRILLATOR? NO . RESPIRATORY: HAVE YOU BEEN SICK IN THE PAST WEEK? NO . FEVER NO . FLU LIKE SYMPTOMS? NO . COUGH NO . INTEGUMENTARY: DO YOU HAVE ANY RASHES OR OPEN SORES? NO . ALLERGIC/IMMUNO: ARE YOU ALLERGIC TO SHELLFISH OR IV DYE? YES, SHELLFISH . ANY NEW ALLERGIES? NO . PSYCHIATRIC: DO YOU HAVE THOUGHTS OF HURTING YOURSELF OR SOMEONE ELSE? NO . ARE YOU ABUSED, NEGLECTED, OR IN AN UNSAFE ENVIRONMENT? NO . ENDOCRINOLOGY: ARE YOU DIABETIC? NO . OTHER: DO YOU NEED ANY PRESCRIPTIONS? NO . IF YES, PLEASE LIST: ____ . ANY NEW PROBLEMS WITH YOUR MEDICATIONS? NO . WHEN DID YOU LAST EAT? ____ . WHEN DID YOU LAST DRINK? ____ . WHAT DID YOU LAST DRINK? ____ . NAME OF PERSON DRIVING YOU HOME? ____ . DO YOU HAVE ANY OTHER QUESTIONS OR CONCERNS YES, FORGOT HER PAIN DIARY BUT EXCEPT FOR A FEW DAYS, SHE HAS HAD GOOD RESULTS PAIN HAS BEEN ABOUT 2/10. . VITAL SIGNS WT 134.4 LBS, HT 65 IN, BMI 22.36 INDEX, BP 112/79 MM HG, HR 62 /MIN, RR 16 /MIN, TEMP 97.9 F, OXYGEN SAT % 100%, NA INITIALS SC 14:46, REVIEWED BY: EMILIE. EXAMINATION GENERAL EXAMINATION: LUNGS:CLEAR TO AUSCULTATION BILATERALLY. HEART:HEART RATE REGULAR. MUSCULOSKELETAL:MUSCLE STRENGTH TESTING 5/5 BILATERAL UPPER EXTREMITIES. , TRIGGER POINTS:, ELICITED WITH PALPATION OVER CERVICAL SPINOUS PROCESSES AND ACROSS THE TRAPEZIUS MUSCLES BILATERALLY. TIGHT FIBROUS BANDS PRESENT . MILD RESTRICTION OF ROM IS NOTED. . 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 CALL IF PAIN RETURNS. PROCEDURE CODES FA211 ESTABILISHED PATIENT [facility] CHARGE DISPOSITION & COMMUNICATION FOLLOW UP 2-3 MONTHS (REASON: NECK PAIN) ELECTRONICALLY SIGNED BY RON BRYANT ON 03/10/2017 AT 09:19 PM EST DISCLAIMER : THIS IS A VISIT SUMMARY EXTRACTED FROM THE [employer] CHART. IT IS NOT A COPY OF THE [employer] PROGRESS NOTE. ADAM
== END ==
LOC: M PAIN 14:15
PROVIDERS: ATTEND Nurse Practitioner Family
DX: M79.1 Myalgia (principal); M96.1 Postlaminectomy syndrome, not elsewhere classified; M47.812 Spondylosis without myelopathy or radiculopathy, cervical region; I10 Essential (primary) hypertension; Z79.899 Other long term (current) drug therapy; Z88.8 Allergy status to other drugs, medicaments and biological substances; Z91.013 Allergy to seafood

== ENCOUNTER → 2017-04-23 | Outpatient (CLI) | payer OTHER | LOC: M WHC 16:00 | DX: Z12.31 Encounter for screening mammogram for malignant neoplasm of breast (principal) ==

== ENCOUNTER → 2017-05-23 | Outpatient (CLI) | payer OTHER | LOC: M PAIN 14:45 | DX: M79.1 Myalgia (principal); M96.1 Postlaminectomy syndrome, not elsewhere classified; M47.812 Spondylosis without myelopathy or radiculopathy, cervical region; I10 Essential (primary) hypertension; Z79.899 Other long term (current) drug therapy; Z88.8 Allergy status to other drugs, medicaments and biological substances; Z91.013 Allergy to seafood | CPT/HCPCS: G0463 ==

== ENCOUNTER → 2017-07-02 | Outpatient (CLI) | payer OTHER ==
[~2017-07-02] MED LIST changes: +BUPIVACAINE HCL 0.25% 10 ML VIAL As Ordered; +BUPIVACAINE HCL 0.25% 30 ML VIAL As Ordered; -CETI10TA PO; -CLAR10CA3 PO; -CYCL10TA PO; -IBUP-1114 PO; -IMIT50TA PO; -LORA1TAB12 PO; -MECL-68 PO; -MULT1TAB9 PO; -NIFE20CA PO; -OMEP20CA3 PO; -PROG1CRE TD; +TRIAMCINOLONE ACETONIDE SUSP 40 MG/ML VIAL (J3301) As Ordered; -VAGI10TA VA; -ZYRT10CA PO
== END ==
LOC: M PAIN 14:30
DX: G89.29 Other chronic pain (principal); M79.1 Myalgia; I10 Essential (primary) hypertension; Z79.899 Other long term (current) drug therapy; Z88.8 Allergy status to other drugs, medicaments and biological substances; Z91.013 Allergy to seafood
CPT/HCPCS: J3301

== ENCOUNTER → 2017-09-04 | Outpatient (CLI) | payer OTHER | LOC: M PAIN 13:30 | DX: M79.1 Myalgia (principal); M96.1 Postlaminectomy syndrome, not elsewhere classified; M47.812 Spondylosis without myelopathy or radiculopathy, cervical region; I10 Essential (primary) hypertension; Z79.899 Other long term (current) drug therapy; Z88.8 Allergy status to other drugs, medicaments and biological substances; Z91.013 Allergy to seafood | CPT/HCPCS: G0463 ==

== ENCOUNTER → 2017-10-07 | Outpatient (CLI) | payer OTHER | LOC: M PAIN 11:45 | DX: G89.29 Other chronic pain (principal); M79.1 Myalgia; M25.511 Pain in right shoulder; M25.512 Pain in left shoulder; M54.6 Pain in thoracic spine; I10 Essential (primary) hypertension; Z79.899 Other long term (current) drug therapy; Z88.8 Allergy status to other drugs, medicaments and biological substances; Z91.013 Allergy to seafood | CPT/HCPCS: J3301 ==

== ENCOUNTER → 2017-10-28 | Outpatient (CLI) | payer OTHER | LOC: M PAIN 10:45 | DX: M79.1 Myalgia (principal); M96.1 Postlaminectomy syndrome, not elsewhere classified; M47.812 Spondylosis without myelopathy or radiculopathy, cervical region; I10 Essential (primary) hypertension; Z79.899 Other long term (current) drug therapy; Z88.8 Allergy status to other drugs, medicaments and biological substances; Z91.013 Allergy to seafood | CPT/HCPCS: G0463 ==

== ENCOUNTER → 2018-01-17 | Outpatient (CLI) | payer OTHER | LOC: M PAIN 09:15 | DX: M79.10 Myalgia, unspecified site (principal); M96.1 Postlaminectomy syndrome, not elsewhere classified; M47.812 Spondylosis without myelopathy or radiculopathy, cervical region; I10 Essential (primary) hypertension; Z98.1 Arthrodesis status; Z79.899 Other long term (current) drug therapy; Z88.8 Allergy status to other drugs, medicaments and biological substances; Z91.013 Allergy to seafood | CPT/HCPCS: G0463 ==

== ENCOUNTER → 2018-01-30 | Outpatient (CLI) | payer OTHER ==
[~2018-01-30] MED LIST changes: -BUPIVACAINE HCL 0.25% 10 ML VIAL As Ordered
== END ==
LOC: M PAIN 14:45
DX: M79.18 Myalgia, other site (principal); M25.512 Pain in left shoulder; M25.511 Pain in right shoulder; M54.6 Pain in thoracic spine; I10 Essential (primary) hypertension; Z79.899 Other long term (current) drug therapy; Z88.8 Allergy status to other drugs, medicaments and biological substances; Z91.013 Allergy to seafood
CPT/HCPCS: J3301

== ENCOUNTER → 2018-03-03 | Outpatient (CLI) | payer OTHER | LOC: M PAIN 11:15 | DX: M60.9 Myositis, unspecified (principal); M47.812 Spondylosis without myelopathy or radiculopathy, cervical region; I10 Essential (primary) hypertension; G43.909 Migraine, unspecified, not intractable, without status migrainosus; Z79.899 Other long term (current) drug therapy; Z88.8 Allergy status to other drugs, medicaments and biological substances; Z91.013 Allergy to seafood | CPT/HCPCS: G0463 ==

== ENCOUNTER → 2018-03-17 | Outpatient (CLI) | payer OTHER | LOC: M RAD 14:41 | DX: N64.4 Mastodynia (principal); Z13.820 Encounter for screening for osteoporosis | CPT/HCPCS: 77066 ==

== ENCOUNTER → 2018-03-26 | Outpatient (CLI) | payer OTHER | LOC: M WHC 12:16 | DX: Z13.820 Encounter for screening for osteoporosis (principal); N63.22 Unspecified lump in the left breast, upper inner quadrant | CPT/HCPCS: 77080 ==

== ENCOUNTER 2018-03-29 19:13 | Emergency (ER) | payer OTHER ==
[2018-03-29] MEDS: dexameTHASONE 20 MG/5 ML VIAL (J1100) IV ×2 (20:13)
[2018-03-29] MEDS: diphenhydrAMINE INJ 50MG/ML VIAL (J1200) IV ×2 (20:13)
[2018-03-29] MEDS: FAMOTIDINE IV BAG 20 MG in APPROPRIATE DILUENT 1 EA IV (20:13)
== END 2018-03-29 22:19 | disposition home or self-care (01) ==
LOC: M ED 19:13
DX: T61.781A Other shellfish poisoning, accidental (unintentional), initial encounter (principal); Y92.9 Unspecified place or not applicable; Y93.9 Activity, unspecified; G43.909 Migraine, unspecified, not intractable, without status migrainosus; I10 Essential (primary) hypertension; Z79.899 Other long term (current) drug therapy; Z91.041 Radiographic dye allergy status; Z91.89 Other specified personal risk factors, not elsewhere classified; Z88.8 Allergy status to other drugs, medicaments and biological substances
CPT/HCPCS: J1200

== ENCOUNTER → 2018-04-04 | Outpatient (CLI) | payer OTHER ==
[~2018-04-04] MED LIST changes: +BUPIVACAINE HCL 0.25% 10 ML VIAL As Ordered ONE; -BUPIVACAINE HCL 0.25% 30 ML VIAL As Ordered; +BUPIVACAINE HCL 0.25% 30 ML VIAL As Ordered ONE; +CETI10TA PO; +CLAR10CA3 PO; +CYCL10TA PO; +IBUP-1114 PO; +IMIT50TA PO; +LORA1TAB12 PO; +MECL-68 PO; +MULT1TAB9 PO; +NIFE20CA PO; +OMEP20CA3 PO; +PRED20TA PO; +PROG1CRE TD; -TRIAMCINOLONE ACETONIDE SUSP 40 MG/ML VIAL (J3301) As Ordered; +TRIAMCINOLONE ACETONIDE SUSP 40 MG/ML VIAL (J3301) As Ordered ONE; +VAGI10TA VA; +ZYRT10CA PO
--- NOTE | 2018-04-22 01:58 | ECWPNPC ---
PATIENT NAME: REJI CARBALLO : 1955 GENDER: FEMALE VISIT DATE: 04/04/2018 DISCHARGE DATE: 04/04/18 1115 VISIT LOCKED DATE TIME: PHYSICIAN: JUDITH PERRY MD RESOURCE: JUDITH PERRY MD REASON FOR APPOINTMENT 1. TPI HISTORY OF PRESENT ILLNESS HISTORY OF PRESENT ILLNESS: PAIN THE PATIENT DESCRIBES THE PAIN... FALL RISK SCREENING: SCREENING :NO FALLS IN THE PAST YEAR CURRENT MEDICATIONS TAKING CLARITIN 10 MG TABLET 1 TABLET ORALLY EVERY MORNING PRN, NOTES: 04/03/18 TAKING LISINOPRIL 20 MG TABLET ORALLY ONCE A DAY, NOTES: 04/04/18 AM TAKING PRILOSEC 20 MG CAPSULE DELAYED RELEASE 1 CAPSULE ORALLY ONCE A DAY, NOTES: 04/04/18 AM TAKING IMITREX 25 MG TABLET DIRECTED ORALLY , NOTES: 04/03/18 TAKING ZYRTEC 10 MG 1 1 CAP(S) ORAL QHS PRN, NOTES: 04/03/18 TAKING FLEXERIL 10 MG TABLET 1 TAB ORALLY DAILY PRN SPASM, NOTES: 04/03/18 NOT-TAKING LORAZEPAM 1 MG TABLET 1 TABLET AT BEDTIME NEEDED ORALLY ONCE A DAY NOT-TAKING CYCLOBENZAPRINE HCL 10 MG TABLET 1 TABLET ORALLY TWICE DAILY NEEDED, NOTES: 2-3 DAYS AGO NOT-TAKING OMEPRAZOLE 20 MG CAPSULE DELAYED RELEASE 1 CAPSULE ORALLY ONCE A DAY, NOTES: 07/02/17 0630 NOT-TAKING PATANOL 1 DROPS OPHTHALMIC DAILY PRN NOT-TAKING LOTEMAX 0.5 % SUSPENSION 1 DROP INTO AFFECTED EYE OPHTHALMIC BID NOT-TAKING VALACYCLOVIR HCL 1 GM TABLET 1 TABLET ORALLY TID NOT-TAKING VAGIFEM 10 MCG TABLET 1 TABLET VAGINAL TWO TIMES A WEEK MEDICATION LIST REVIEWED AND RECONCILED WITH THE PATIENT PAST MEDICAL HISTORY HYPERTENSION MIGRAINS ALLERGIES SKELAXIN: ITCHING AND TIGHTNESS IN CHEST: ALLERGY SHELLFISH: ITCHING AND HIVES: ALLERGY SURGICAL HISTORY BILATERAL BUNIONECTOMY CERVICAL FUSION 2000 D/C SOCIAL HISTORY GENERAL: TOBACCO USE ARE YOU A:NONSMOKER ALCOHOL SCREENING DID YOU HAVE A DRINK CONTAINING ALCOHOL IN THE PAST YEAR?NO POINTS0 INTERPRETATIONNEGATIVE RECREATIONAL DRUG USE DRUG USE?NO CAFFEINE CAFFEINE USE?YES HOW OFTEN AND HOW MUCH? 1 CUP COFFEE/DAY. BUDDHISM [id number] RELIGIOUS LANGUAGE LANGUAGES SPOKEN:KYRGYZ LEARNING BARRIERS / SPECIAL NEEDS BARRIERS TO LEARNING?NO HEARING IMPAIRED?NO VISION IMPAIRED?YES :CORRECTIVE LENSES COGNITIVELY IMPAIRED?NO READINESS TO LEARN?YES LEARNING PREFERENCES?NO LEARNING CAPABILITIES PRESENT?YES EMOTIONAL BARRIERS?NO SPECIAL DEVICES?NO RESEARCH AGRICULTURAL ENGINEER NEEDED?NO DOMESTIC VIOLENCE DO YOU FEEL SAFE IN YOUR ENVIRONMENT?YES PAIN CLINIC PFS, CLERGY, PUBLIC HEALTH REFERRALS PFS REFERRAL NEEDED?NO CLERGY REFERRAL NEEDED?NO PUBLIC HEALTH REFERRAL NEEDED?NO WAS THE PROVIDER NOTIFIED OF ANY PERTINENT INFO?YES HAS THE PATIENT BEEN EDUCATED REGARDING HIS/HER PLAN OF CARE?YES HAS THE PATIENT BEEN EDUCATED REGARDING PAIN, THE RISK FOR PAIN, THE IMPORTANCE OF EFFECTIVE PAIN MANAGEMENT, AND THE PAIN ASSESSMENT PROCESS?YES ADVANCE DIRECTIVE ADVANCE DIRECTIVE DISCUSSED WITH PATIENT:YES PT STATES HCP IS ON FILE WITH [facility] REVIEWED WITH PT 01/17/18 3482 LAS. HOSPITALIZATION/MAJOR DIAGNOSTIC PROCEDURE SURGERIES REVIEW OF SYSTEMS REVIEWED BY: PROVIDER: . CONSTITUTIONAL: ANY CHANGE IN YOUR MEDICAL CONDITION? NO . CHILLS NO . FEVER NO . INFECTION: DO YOU HAVE NEW INFECTIONS? NO . DO YOU HAVE HISTORY OF MRSA? NO . MUSCULOSKELETAL: ANY NEW PATTERNS OF PAIN OR NUMBNESS? NO . GASTROENTEROLOGY: ANY NEW CHANGE IN BOWEL CONTROL? NO . GENITOURINARY: ANY NEW CHANGE IN BLADDER CONTROL? NO . IS THERE A CHANCE YOU COULD BE ? NO . HEMATOLOGY/LYMPH: DO YOU TAKE ANY BLOOD THINNERS? (FOR EXAMPLE- COUMADIN, PLAVIX, AGGRENOX, PLATEL, PRADAXA, OR XARELTO) NO . WHEN WAS YOUR LAST DOSE? DATE: TIME: . NEUROLOGY: HAVE YOU FALLEN IN THE PAST 6 MONTHS? NO . ANY NEW EXTREMITY NUMBNESS OR WEAKNESS? NO . CARDIOLOGY: DO YOU HAVE A PACEMAKER OR DEFIBRILLATOR? NO . RESPIRATORY: HAVE YOU BEEN SICK IN THE PAST WEEK? NO . FEVER NO . FLU LIKE SYMPTOMS? NO . COUGH NO . INTEGUMENTARY: DO YOU HAVE ANY RASHES OR OPEN SORES? NO . ALLERGIC/IMMUNO: ARE YOU ALLERGIC TO SHELLFISH OR IV DYE? NO . ANY NEW ALLERGIES? NO . PSYCHIATRIC: DO YOU HAVE THOUGHTS OF HURTING YOURSELF OR SOMEONE ELSE? NO . ARE YOU ABUSED, NEGLECTED, OR IN AN UNSAFE ENVIRONMENT? NO . ENDOCRINOLOGY: ARE YOU DIABETIC? NO . OTHER: DO YOU NEED ANY PRESCRIPTIONS? NO . IF YES, PLEASE LIST: ____ . ANY NEW PROBLEMS WITH YOUR MEDICATIONS? NO . WHEN DID YOU LAST EAT? 04/03/18 1900 . WHEN DID YOU LAST DRINK? 04/04/18 AM . WHAT DID YOU LAST DRINK? WATER . NAME OF PERSON DRIVING YOU HOME? ROMINA . DO YOU HAVE ANY OTHER QUESTIONS OR CONCERNS NO . VITAL SIGNS WT 130 LBS, HT 65 IN, BMI 21.63 INDEX, BP 108/81 MM HG, HR 81 /MIN, RR 16 /MIN, TEMP 98.9 F, OXYGEN SAT % 100, REVIEWED BY: EM. ASSESSMENTS MYALGIA, OTHER SITE - M79.18 (PRIMARY) TREATMENT OTHERS REFILL FLEXERIL TABLET, 10 MG, 1 TAB, ORALLY, DAILY PRN SPASM, 30 DAY(S), 30, REFILLS 1, NOTES: 04/03/18 PROCEDURES PN TRIGGER POINT INJECTION WITH STEROIDS PRE PROCEDURE DIAGNOSIS 1. MYALGIA 2. PAIN AT BILATERAL SHOULDER AREA AND BILATERAL THORACIC AREA POST PROCEDURE DIAGNOSIS 1. MYALGIA 2. PAIN AT BILATERAL SHOULDER AREA AND BILATERAL THORACIC AREA PROCEDURE TRIGGER POINT INJECTION AT BILATERAL SHOULDER AREA AND BILATERAL THORACIC AREA SURGEON DR. JUDITH PERRY GAS GENERATOR OPERATOR NONE ANESTHESIA LOCAL PRE PROCEDURE NOTE THE PATIENT HAS A HISTORY OF CHRONIC PAIN AT THE RIGHT AND LEFT SHOULDER AREA AND RIGHT AND LEFT THORACIC AREA. I EVALUATE THE PATIENT AND REVIEWED THE CHART. THERE IS EVIDENCE OF BANDS OF TISSUE WITH RESTRICTION OF MOVEMENT AND PRESENCE OF TRIGGER POINT AT THE AFFECTED AREA. I WENT OVER THE RISKS, ALTERNATIVES, AND BENEFITS ASSOCIATED WITH THIS PROCEDURE. THE PATIENT WOULD LIKE TO PROCEED AND GIVE CONSENT TO PERFORMED THE PROCEDURE. THE PATIENT DENIES UNEXPLAINABLE WEIGHT LOSS, FEVER, CHILLS, OR NEW CHANGES IN URINARY OR BOWEL CONTROL DESCRIPTION OF PROCEDURE THE PATIENT WAS BROUGHT TO THE PROCEDURE ROOM AND PLACED IN THE SITTING POSITION. THE AREA WAS CLEANED WITH ALCOHOL. THE PROCEDURE WAS DONE USING ASEPTIC STERILE TECHNIQUE. I CHECKED LATERALITY AND THE LEVEL WHERE THE PROCEDURE WAS GOING TO BE PERFORMED WITH THE PATIENT AND THE SUPPORTING STAFF AT THE MOMENT OF THE TIME OUT IN THE PROCEDURE ROOM. USING A 25-GAUGE NEEDLE, TRIGGER POINTS WERE INJECTED AT THE RIGHT AND LEFT SHOULDER AREA AND RIGHT AND LEFT THORACIC AREA WITH A TOTAL OF 40 ML OF BUPIVACAINE 0.25% AND KENALOG 40 MG. THERE WAS NO EVIDENCE OF BLOOD, PARESTHESIA OR CEREBROSPINAL FLUID DURING THE PROCEDURE. THE PATIENT WAS SENT TO THE RECOVERY ROOM. THE PATIENT WAS MOVING THE EXTREMITIES AND DOING WELL. THERE WAS NO COMPLICATION DURING THE PROCEDURE POST PROCEDURE NOTE THE PATIENT WILL BE SEEN IN A FOLLOW UP IN THE NEXT FEW WEEKS. INSTRUCTIONS WERE GIVEN, QUESTIONS WERE ANSWERED, AND THE PATIENT EXPRESSED UNDERSTANDING AND AGREES WITH THE PLAN. I, DESHAWN MCGRATH, DOCUMENTED THE ABOVE INFORMATION ACTING A SCRIBE FOR DR. PERRY. I HAVE REVIEWED THE ABOVE DOCUMENT, WRITTEN BY DESHAWN COCHRANIBKeyonna AND I VERIFY THAT IT IS ACCURATE. PROCEDURE CODES 67512 INJECT TRIGGER POINTS 3/> DISPOSITION & COMMUNICATION FOLLOW UP 3 WEEKS ELECTRONICALLY SIGNED BY JUDITH PERRY MD, MD ON 04/21/2018 AT 02:05 PM EST DISCLAIMER : THIS IS A VISIT SUMMARY EXTRACTED FROM THE [employer] CHART. IT IS NOT A COPY OF THE [employer] PROGRESS NOTE. ADAM
== END ==
LOC: M PAIN 09:00
PROVIDERS: ATTEND Anesthesiology
DX: M79.18 Myalgia, other site (principal); I10 Essential (primary) hypertension; G43.909 Migraine, unspecified, not intractable, without status migrainosus; Z88.8 Allergy status to other drugs, medicaments and biological substances; Z98.1 Arthrodesis status; Z79.899 Other long term (current) drug therapy; Z91.013 Allergy to seafood
CPT/HCPCS: 20553; J3301